=== PATIENT | female | born 1955 | race Caucasian/White ===

== ENCOUNTER 2021-06-10 08:24 | Inpatient (IN) | payer MEDICARE, MEDICAID, SELFPAY ==
[2021-06-10] VITALS (8 sets, daily range): BP systolic 86–144; BP diastolic 33–108; PULSE 63–89; RESP 14–26; TEMP 35.8–36.9; O2SAT 76–99; BMI 27.1; BMI 25.0
--- NOTE | 2021-06-10 08:36 | RAD_ITS ---
INDICATION: hypoxia EXAMINATION/TECHNIQUE: X-RAY - XR Chest 1 View COMPARISON: None. FINDINGS: LINES/DEVICES: None. Low lung volumes accentuate the interstitial markings and mediastinal prominence. Heart size is normal. Left basilar retrocardiac cystic lucency is incompletely characterized. No focal consolidations, effusions, or sizable pneumothorax. Osseous structures are grossly intact. RAD/Chest 1 View (Portable) IMPRESSION: Incompletely characterized left basilar retrocardiac cystic lucency. Findings may relate to a hiatal hernia however further assessment with CT chest is recommended to exclude cystic or cavitary lesion. Electronically Signed: Reinaldo House MD at 10:15 EST Tel , Service support ,
--- NOTE | 2021-06-10 08:37 | EKG12_ITS ---
Test Reason : AMS Blood Pressure : / mmHG Vent. Rate : 079 BPM Atrial Rate : 079 BPM P-R Int : 136 ms QRS Dur : 072 ms QT Int : 376 ms P-R-T Axes : 014 -37 087 degrees QTc Int : 431 ms Normal sinus rhythm with sinus arrhythmia Left axis deviation Nonspecific T wave abnormality Abnormal ECG Confirmed by SHO ARELLANO, DARIEN ([id number]), editor at large LUCIANO GOODMAN ([id number]) on 06/10/2021 11:50:57 AM Referred By: DIOGENES Confirmed By:DARIEN BERKOWITZ MD
[2021-06-10 08:55] LABS: Absolute Lymphocyte Count 1.44 X10^3/uL (0.83-4.51); Absolute Neutrophil Count 4.6 X10^3/uL (2.0-7.7); Basophil# 0.04 X10^3/uL; Basophil% 0.5 % (0-1); Eosinophils% 2.7 % (0-5); Hematocrit 47.3 % (37-47); Hemoglobin 16.2 g/dL (12.0-15.0); Lymphocyte # 1.44 X10^3/ul (0.83-4.51); Lymphocyte % 19.3 % (19-41); Mean Corp Hgb Conc 34.2 g/dL (32-36); Mean Corpuscular Hgb 33.3 pg (27.0-32.0); Mean Corpuscular Volume 97.1 fL (81-99); Mean Platelet Vol. 10.4 fl (6.2-12.0); Monocyte# 1.14 X10^3/uL; Monocyte% 15.3 % (0-10); NRBC Flagged by Analyzer 0 % (0-5); Neutrophil # 4.58 X10^3/uL (2.7-7.7); Neutrophil % 61.5 % (47-70); Platelet Count 160 K/mm3 (150-450); RBC Distribution Width SD 49.2 fl (35.1-43.9); Red Blood Count 4.87 M/mm3 (4.2-5.4); White Blood Count 7.5 K/mm3 (4.4-11.0)
--- NOTE | 2021-06-10 09:00 | EX.ED.DYSGE1 ---
HPI History of Present Illness Chief Complaint: Mental Status Change Informant: patient Narrative Narrative: 65-year-old female from [facility] presents to the emergency room via EMS. Reportedly the patient vomited yesterday. Unfortunately the information EMS got was provided by the roommate. They note that her mentation is different than baseline and her leaning her neck to the left is new. EMS was concerned about a GI bleed as the emesis around her mouth and in her mouth appears black. The patient can tell me that she is experiencing abdominal pain. EMS notes hypotension and hypoxemia. No reported anticoagulants prescribed. PFSH PFS Medical History Anemia Generalized anxiety disorder GERD (gastroesophageal reflux disease) Intellectual disability TIERRA (obstructive sleep apnea) Allergy/AdvReac Type Severity Reaction Status Date / Time cephalexin Allergy PT UNABLE Verified 06/10/21 09:18 TO RESPOND-NEEDS F/U codeine Allergy PT UNABLE Verified 06/10/21 09:18 TO RESPOND-NEEDS F/U Social History (Updated 06/10/21 @ 09:[address] David Hui DO) Smoking Status: Never smoker alcohol intake: never ROS ROS ED Constitutional Constitutional ED: Denies chills or weight loss Eyes Eyes: Denies change in vision or diplopia ENT ENT ED: Denies ear pain, rhinorrhea or sore throat Cardiovascular Cardiovascular: Denies chest pain, orthopnea, palpitations or racing heartbeat Respiratory/Chest Respiratory/Chest: Denies cough, dyspnea or orthopnea Gastrointestinal Gastrointestinal: Reports abdominal pain, nausea and vomiting; Denies diarrhea Genitourinary Genitourinary ED: Denies dysuria, hematuria or urinary frequency Musculoskeletal Musculoskeletal: Reports neck pain; Denies arthralgias or myalgias Integumentary Denies abscess or rash Neurologic Neurologic: Denies headache(s) or weakness Psychiatric Psychiatric: Denies anxiety, depression, suicidal ideation or suicidal thoughts Endocrine Endocrinology: Denies polydipsia, polyphagia or polyuria Allergic/Immunologic Allergic/Immunologic ED: Denies mouth swelling, tongue swelling or urticaria EXAM Physical Exam Const Vital Signs: 06/10/21 08:25 06/10/21 08:40 06/10/21 13:11 Temperature 96.8 F L 96.5 F L Temperature Source Temporal Temporal Pulse Rate 80 86 76 Respiratory Rate 22 H 14 24 H Blood Pressure 94/51 L 86/56 L 109/33 L Blood Pressure Mean 65 66 58 Pulse Ox 91 93 99 Oxygen Delivery Method Nasal Cannula Room Air Room Air Oxygen Flow Rate (L/min) 2 Positive well nourished and well developed General Appearance ED: well developed HEENT Reports normocephalic, head/scalp atraumatic and moist mucous membranes HEENT Narrative: There is black appearing emesis on the patient's teeth and lips Eyes PERRL and EOMs intact bilaterally Neck no JVD Neck Narrative: Patient holds her head side bent left rotated right and complains of pain with movement she reports tenderness to palpation in the musculature Resp normal respiratory effort and clear to auscultation bilaterally Cardio regular rate, regular rhythm and no murmurs GI Auscultation: normoactive bowel sounds Palpation: soft and tender Narrative: Patient is incontinent of stool which is black appearing Back/Spine no CVA tenderness and normal ROM Extremity General Extremety ED: Yes edema General Extremity: edema Neuro CN's II-XII intact bilaterally Sensorium / Orientation: alert Motor Exam: strength 5/5 throughout Psych Mood & Affect: Negative for tearful Skin no rashes or lesions noted and no wounds MDM MDM MDM Narrative Medical decision making narrative: Arriving in the emergency department the patient was found to be hypotensive hypoxic with altered mental status. It would appear that the patient has vomited yesterday and unknown when she had diarrhea. Patient is a extremely difficult IV start and blood draw. Eventually I performed a femoral stick was able to get basic labs. My interpretation of the chest x-ray is no acute process. White count 7.5. Lactic acid is normal. She has evidence of UTI on cath specimen. This will be sent for culture and the patient received Cipro. Blood cultures were also obtained. CT abdomen pelvis did not demonstrate anything acute. CT of the brain showed nothing acute. After receiving a liter of IV fluids her blood pressure has been elevated and stable. She has been receiving supplemental oxygenation. Lab Data Attestation: I reviewed the patient's lab results. Labs: Laboratory Results - last 24 hr 06/10/21 06/10/21 06/10/21 08:45 08:45 08:45 WBC 7.5 RBC 4.87 Hgb 16.2 H Hct 47.3 H MCV 97.1 MCH 33.3 H MCHC 34.2 RDW Std Deviation 49.2 H RDW Coeff of Robin 14.0 Plt Count 160 MPV 10.4 Immature Gran % (Auto) 0.700 Neut % (Auto) 61.5 Lymph % (Auto) 19.3 Hart % (Auto) 15.3 H Eos % (Auto) 2.7 Baso % (Auto) 0.5 Absolute Neuts (auto) 4.6 Absolute Lymphs (auto) 1.44 Nucleated RBC % 0 PT Cancelled INR Cancelled APTT Cancelled Sodium Cancelled Potassium Cancelled Chloride Cancelled Carbon Dioxide Cancelled Anion Gap Cancelled BUN Cancelled Creatinine Cancelled Estim Creat Clear Calc Cancelled Est GFR (MDRD) Af Amer Cancelled Est GFR (MDRD) Non-Af Cancelled BUN/Creatinine Ratio Cancelled Glucose Cancelled Lactic Acid Calcium Cancelled Total Bilirubin Cancelled Direct Bilirubin Cancelled AST Cancelled ALT Cancelled Alkaline Phosphatase Cancelled Troponin I High Sens Cancelled Total Protein Cancelled Albumin Cancelled Globulin Cancelled Lipase Cancelled Urine Color Urine Clarity Urine pH Ur Specific [place] Urine Protein Urine Glucose (UA) Urine Ketones Urine Occult Blood Urine Nitrite Urine Bilirubin Urine Urobilinogen Ur Leukocyte Esterase Urine RBC Urine WBC Ur Squamous Epith Cells Urine Bacteria Urine Mucus Valproic Acid Blood Type Antibody Screen 06/10/21 06/10/21 06/10/21 08:45 08:45 08:45 WBC RBC Hgb Hct MCV MCH MCHC RDW Std Deviation RDW Coeff of Robin Plt Count MPV Immature Gran % (Auto) Neut % (Auto) Lymph % (Auto) Hart % (Auto) Eos % (Auto) Baso % (Auto) Absolute Neuts (auto) Absolute Lymphs (auto) Nucleated RBC % PT INR APTT Sodium Potassium Chloride Carbon Dioxide Anion Gap BUN Creatinine Estim Creat Clear Calc Est GFR (MDRD) Af Amer Est GFR (MDRD) Non-Af BUN/Creatinine Ratio Glucose Lactic Acid Cancelled Calcium Total Bilirubin Direct Bilirubin AST ALT Alkaline Phosphatase Troponin I High Sens Total Protein Albumin Globulin Lipase Urine Color Urine Clarity Urine pH Ur Specific [place] Urine Protein Urine Glucose (UA) Urine Ketones Urine Occult Blood Urine Nitrite Urine Bilirubin Urine Urobilinogen Ur Leukocyte Esterase Urine RBC Urine WBC Ur Squamous Epith Cells Urine Bacteria Urine Mucus Valproic Acid Cancelled Blood Type Cancelled Antibody Screen Cancelled 06/10/21 06/10/21 06/10/21 10:30 11:15 11:35 WBC RBC Hgb Hct MCV MCH MCHC RDW Std Deviation RDW Coeff of Robin Plt Count MPV Immature Gran % (Auto) Neut % (Auto) Lymph % (Auto) Hart % (Auto) Eos % (Auto) Baso % (Auto) Absolute Neuts (auto) Absolute Lymphs (auto) Nucleated RBC % PT 14.3 INR 1.2 APTT 28.6 Sodium Cancelled Potassium Cancelled Chloride Cancelled Carbon Dioxide Cancelled Anion Gap Cancelled BUN Cancelled Creatinine Cancelled Estim Creat Clear Calc Cancelled Est GFR (MDRD) Af Amer Cancelled Est GFR (MDRD) Non-Af Cancelled BUN/Creatinine Ratio Cancelled Glucose Cancelled Lactic Acid Calcium Cancelled Total Bilirubin Cancelled Direct Bilirubin Cancelled AST Cancelled ALT Cancelled Alkaline Phosphatase Cancelled Troponin I High Sens Cancelled Total Protein Cancelled Albumin Cancelled Globulin Cancelled Lipase Cancelled Urine Color Yellow Urine Clarity Sl. Cloudy Urine pH 6.0 Ur Specific [place] 1.015 Urine Protein 30 H Urine Glucose (UA) Normal Urine Ketones 15 H Urine Occult Blood 50 H Urine Nitrite Negative Urine Bilirubin Negative Urine Urobilinogen 1 H Ur Leukocyte Esterase 500 H Urine RBC 0-5 SEEN Urine WBC 25-50 SEEN Ur Squamous Epith Cells 0-5 SEEN Urine Bacteria 1+ Urine Mucus 0 SEEN Valproic Acid Blood Type Antibody Screen 06/10/21 06/10/21 11:35 11:35 WBC RBC Hgb Hct MCV MCH MCHC RDW Std Deviation RDW Coeff of Robin Plt Count MPV Immature Gran % (Auto) Neut % (Auto) Lymph % (Auto) Hart % (Auto) Eos % (Auto) Baso % (Auto) Absolute Neuts (auto) Absolute Lymphs (auto) Nucleated RBC % PT INR APTT Sodium 136 Potassium 3.7 Chloride 99 Carbon Dioxide 30.0 Anion Gap 7 BUN 20 H Creatinine 1.42 H Estim Creat Clear Calc 35.07 Est GFR (MDRD) Af Amer 48 L Est GFR (MDRD) Non-Af 39 L BUN/Creatinine Ratio 14.1 Glucose 96 Lactic Acid 1.5 Calcium 8.5 Total Bilirubin 0.40 Direct Bilirubin 0.20 AST 15 ALT 9 L Alkaline Phosphatase 76 Troponin I High Sens 45 Total Protein 6.9 Albumin 2.2 L Globulin 4.7 H Lipase 387 Urine Color Urine Clarity Urine pH Ur Specific [place] Urine Protein Urine Glucose (UA) Urine Ketones Urine Occult Blood Urine Nitrite Urine Bilirubin Urine Urobilinogen Ur Leukocyte Esterase Urine RBC Urine WBC Ur Squamous Epith Cells Urine Bacteria Urine Mucus Valproic Acid Blood Type Antibody Screen Radiography Diagnostic Testing: Clinical Impression(s) from Imaging Studies Chest X-Ray 06/10/21 08:36 IMPRESSION: Incompletely characterized left basilar retrocardiac cystic lucency. Findings may relate to a hiatal hernia however further assessment with CT chest is recommended to exclude cystic or cavitary lesion. Electronically Signed: Reinaldo House MD at 10:15 EST Tel , Service support , Abdomen/Pelvis CT 06/10/21 12:34 IMPRESSION: Large hiatal hernia with left basilar atelectasis. Individualized dose optimization techniques were used for this CT. at 1331 Reported and signed by: Raghu Noel MD Electronically Signed: Raghu Noel MD at 13:30 EST Tel , Service support , Brain CT 06/10/21 12:42 IMPRESSION: 1. No acute intracranial abnormality. 2. Minimal underlying senescent change with small vessel ischemia. Individualized dose optimization techniques were used for this CT. at 1323 Reported and signed by: Raghu Noel MD Electronically Signed: Raghu Noel MD at 13:22 EST Tel , Service support , EKG Initial EKG: Attestation: I personally reviewed and interpreted this EKG as follows: Comments: Normal sinus rhythm with a ventricular rate of 79 bpm Discharge Plan Dx/Rx/DC Orders Clinical Impression: Vomiting and diarrhea, Acute cystitis, Acute hypoxemic respiratory failure, Acute hypotension, Acute torticollis Disposition Disposition: Acute Care Hospital [facility]
[2021-06-10 10:37] LABS: Mucous, Urine 0 SEEN /hpf (<or=2+)
[2021-06-10 10:39] LABS: Color, Urine Yellow (Yellow); Glucose, Dipstick Normal (Normal); Ketone-Dipstick 15 mg/dl (Negative); Leukocyte Esterase-Dipstick 500 /ul (Negative); Nitrite-Dipstick Negative (Negative); Occult Blood-Urine 50 /ul (Negative); Protein-Dipstick 30 mg/dl (Negative); Specific Gravity, Urine 1.015 (1.002-1.030); Urine Bilirubin Dipstick Negative (Negative); Urine Clarity Sl. Cloudy (Clear); Urine Urobilinogen 1 mg/dl (Normal)
[2021-06-10 10:49] LABS: Bacteria 1+ /hpf (None Seen); Red Blood Cells-Urine 0-5 SEEN /hpf (0-5); Squamous Epithelial Cells - UA 0-5 SEEN /hpf (5-10); White Blood Cells 25-50 SEEN /hpf (0-5)
[2021-06-10 11:59] LABS: International Normalized Ratio 1.2; Prothrombin Time (Protime)PT. 14.3 SECONDS (11.7-14.9)
[2021-06-10 12:00] LABS: Partial Thromboplast Time 28.6 Seconds (24.1-36.2)
[2021-06-10 12:12] LABS: Lactic Acid 1.5 mmol/L (0.4-1.9)
[2021-06-10 12:22] LABS: AST(SGOT) 15 U/L (15-37); Alanine Aminotransfer ALT/SGPT 9 U/L (13-56); Albumin, Serum 2.2 g/dL (3.2-5.0); Alkaline Phosphatase 76 U/L (45-117); Anion Gap 7 (5-15); BUN 20 mg/dL (7-18); BUN/Creat Ratio 14.1 RATIO (10-20); Calcium,Total 8.5 mg/dL (8.5-10.1); Chloride 99 mmol/L (98-107); Creatinine, Serum 1.42 mg/dL (0.55-1.02); EST Glomerular Filtration Rate 39 mL/min (>60); Est Glom Filt Rate - Afr Amer 48 mL/min (>60); Estimated Creatinine Clearance 35.07 ml/min; Globulin 4.7 g/dL (2.2-4.2); Glucose 96 mg/dL (74-106); Lipase 387 U/L (73-393); Potassium 3.7 mmol/L (3.5-5.1); Protein, Total 6.9 g/dL (6.4-8.2); Sodium Level 136 mmol/L (136-145); Troponin-I HS 45 pg/mL (3.0-54.0)
--- NOTE | 2021-06-10 12:34 | CT_ITS ---
EXAM: CT ABDOMEN AND PELVIS WITH INTRAVENOUS CONTRAST : 1955 CLINICAL INDICATION: abdominal pain and vomiting TECHNIQUE: Helically acquired images were obtained of the abdomen and pelvis with intravenous contrast. This CT exam was performed using one or more of the following dose reduction techniques: automated exposure control, adjustment of the mA and/or kV according to patient size, and/or use of iterative reconstruction technique. This report was created using [employer] report generation technology. CONTRAST: IV 100mL [id number] COMPARISON: None. FINDINGS: LOWER THORAX: There is atelectasis in the lung bases. There is a moderate to large hiatal hernia present. No cardiomegaly. No significant pericardial effusion. ABDOMEN: LIVER: Unremarkable. Homogeneous. No focal mass. GALLBLADDER AND BILE DUCTS: Unremarkable. No calcified gallstones. No gallbladder distention or wall edema. No intra- or extrahepatic biliary ductal dilation. PANCREAS: Unremarkable. No focal cystic or solid mass. SPLEEN: Unremarkable. Normal size without focal cystic or solid mass. ADRENALS: Unremarkable. No nodules. KIDNEYS AND URETERS: Unremarkable. Normal renal size and position. No hydronephrosis. STOMACH AND BOWEL: There are diverticula in the descending and sigmoid colon. There is minimal inflammation seen surrounding the distal descending colon which may represent diverticulitis. There is also inflammation involves enhancement of the wall of the mid to distal sigmoid colon which may represent colitis. Depression. Inflammation of the wall of the mid to distal sigmoid colon with surrounding inflammation with no evident mild colitis. There are also diverticula seen in the descending colon with mild inflammation which may represent diverticulitis. There is no abscess or perforation. No stomach or bowel distention. PELVIS: APPENDIX: No evidence of acute appendicitis. BLADDER: There is a Snell catheter in the bladder. REPRODUCTIVE: Unremarkable as visualized. No mass. ABDOMEN and PELVIS: INTRAPERITONEAL SPACE: Unremarkable. No ascites or other fluid collection. No free air. BONES/JOINTS: Unremarkable. No suspicious lytic or blastic abnormality. SOFT TISSUES: Unremarkable. No discrete abdominal or pelvic wall hernia. VASCULATURE: Unremarkable. Abdominal aorta is non-dilated. LYMPH NODES: Unremarkable. No enlarged lymph nodes. OTHER FINDINGS: There is no abscess or perforation. CT/Abdomen/Pelvis W IV Cont ONLY IMPRESSION: Large hiatal hernia with left basilar atelectasis. Individualized dose optimization techniques were used for this CT. at 1331 Reported and signed by: Raghu Noel MD Electronically Signed: Raghu Noel MD at 13:30 EST Tel , Service support ,
--- NOTE | 2021-06-10 12:42 | CT_ITS ---
EXAM: CT HEAD WITHOUT INTRAVENOUS CONTRAST : 1955 CLINICAL INDICATION: altered loc TECHNIQUE: Multiple axial images were obtained of the head without intravenous contrast. This CT exam was performed using one or more of the following dose reduction techniques: automated exposure control, adjustment of the mA and/or kV according to patient size, and/or use of iterative reconstruction technique. This report was created using [facility] report generation technology. COMPARISON: None. FINDINGS: BRAIN AND EXTRA-AXIAL SPACES: There is enlargement of the ventricular system and cortical sulci. There is minimal hypoattenuation in the periventricular white matter. No intra- or extra-axial hemorrhage. No evidence of acute infarct. No intracranial mass or mass effect. There is preservation of the muniz/white matter interface. Posterior fossa structures are unremarkable. Basal cisterns are patent. BONES/JOINTS: Unremarkable. No discrete lytic or blastic abnormalities. SINUSES: Unremarkable as visualized. Clear. MASTOID AIR CELLS: Unremarkable. Clear. ORBITS: Visualized globes, extraocular muscles, optic nerves and retrobulbar fat appear unremarkable. CT/Brain/Head without Contrast IMPRESSION: 1. No acute intracranial abnormality. 2. Minimal underlying senescent change with small vessel ischemia. Individualized dose optimization techniques were used for this CT. at 1323 Reported and signed by: Raghu Noel MD Electronically Signed: Raghu Noel MD at 13:22 EST Tel , Service support ,
--- NOTE | 2021-06-10 14:11 | HP.PCM.HOS_ITS ---
HPI - General HPI Narrative YOLIS DHILLON, is a 65 F who presents from the residential with altered mental status. Unfortunately there is no nursing staff available at the time to provide signout to EMS so the patient's roommate told EMS what had been going on. Apparently the patient had thrown up the night before and had a bowel movement this morning and had not been evaluated by nursing staff at the residential until this morning at which point we'll determine she is to be transferred to the hospital for evaluation. In the ER she is afebrile without a leukocytosis. She does appear to be dehydrated with hemoglobin of 16.2 and her creatinine is elevated at 1.42 however we do not know what her baseline is. UA is consistent with UTI and initially she was little bit hypoxic but which needed 2 L nasal cannula but this has resolved. Given the episode of emesis combined with the transient hypoxia chest x-ray was obtained which initially was unremarkable. [facility] Medical History (Updated 06/10/21 @ 14:[address] Mando Baires MD) Anemia Generalized anxiety disorder GERD (gastroesophageal reflux disease) Intellectual disability TIERRA (obstructive sleep apnea) Allergy/AdvReac Type Severity Reaction Status Date / Time cephalexin Allergy PT UNABLE Verified 06/10/21 09:18 TO RESPOND-NEEDS F/U codeine Allergy PT UNABLE Verified 06/10/21 09:18 TO RESPOND-NEEDS F/U Family History (Updated 06/10/21 @ 14:[address] Mando Baires MD) Other Cancer Heart disease Surgical History (Updated 06/10/21 @ 14:[address] Mando Baires MD) Status post cataract extraction Social History (Updated 06/10/21 @ 09:[address] David Hui, ) Smoking Status: Never smoker alcohol intake: never ROS Constitutional Constitutional: Denies chills, fatigue, fever(s) or malaise Eyes Eyes: Denies blurry vision ENT HEENT: Denies headache(s) or nasal discharge Cardiovascular Cardiovascular: Denies chest pain, dyspnea on exertion or syncope Respiratory/Chest Respiratory/Chest: Denies cough, shortness of breath at rest or shortness of breath with exertion Gastrointestinal Gastrointestinal: Reports nausea and vomiting; Denies constipation or diarrhea Genitourinary Genitourinary: Denies dysuria Neurologic Neurologic: Denies focal weakness, numbness or tremor(s) Psychiatric Psychiatric: Denies anxiety or depression Vital Signs Vital Signs Vital Signs: 06/10/21 08:25 06/10/21 08:40 06/10/21 13:11 Temperature 96.8 F L 96.5 F L Temperature Source Temporal Temporal Pulse Rate 80 86 76 Respiratory Rate 22 H 14 24 H Blood Pressure 94/51 L 86/56 L 109/33 L Blood Pressure Mean 65 66 58 Pulse Ox 91 93 99 Oxygen Delivery Method Nasal Cannula Room Air Room Air Oxygen Flow Rate (L/min) 2 Weight Weight: 163 lb 2.273 oz Body Mass Index (BMI) 27.1 Physical Exam Const alert and no apparent distress General Appearance: cooperative Orientation / Consciousness: oriented to person HEENT normocephalic Mouth: dry mucous membranes Eyes PERRL, EOMs intact bilaterally and conjunctivae normal Neck supple and no JVD Resp normal respiratory effort, no retractions, no use of accessory muscles and clear to auscultation bilaterally Auscultation: Negative for crackles, rales, rhonchi or wheezes Cardio regular rate, regular rhythm, S1 normal heart sound, S2 normal heart sound and no murmurs GI soft to palpation, non-tender and non-distended; Negative for hepatosplenomegaly Extremity no clubbing, cyanosis or edema Skin no rashes or lesions noted Neuro no focal motor deficits and no sensory deficits noted Psych affect normal Appearance: appropriate Results Lab / Micro Data Result Diagrams: 06/10/21 08:45 06/10/21 11:35 Labs: Laboratory Results - last 24 hr 06/10/21 08:45: WBC 7.5, RBC 4.87, Hgb 16.2 H, Hct 47.3 H, MCV 97.1, MCH 33.3 H, MCHC 34.2, RDW Std Deviation 49.2 H, RDW Coeff of Robin 14.0, Plt Count 160, MPV 10.4, Immature Gran % (Auto) 0.700, Neut % (Auto) 61.5, Lymph % (Auto) 19.3, [place] % (Auto) 15.3 H, Eos % (Auto) 2.7, Baso % (Auto) 0.5, Absolute Neuts (auto) 4.6, Absolute Lymphs (auto) 1.44, Nucleated RBC % 0 06/10/21 08:45: PT Cancelled, INR Cancelled, APTT Cancelled 06/10/21 08:45: Sodium Cancelled, Potassium Cancelled, Chloride Cancelled, Carbon Dioxide Cancelled, Anion Gap Cancelled, BUN Cancelled, Creatinine Cancelled, Estim Creat Clear Calc Cancelled, Est GFR (MDRD) Af Amer Cancelled, Est GFR (MDRD) Non-Af Cancelled, BUN/Creatinine Ratio Cancelled, Glucose Cancelled, Calcium Cancelled, Total Bilirubin Cancelled, Direct Bilirubin Cancelled, AST Cancelled, ALT Cancelled, Alkaline Phosphatase Cancelled, Troponin I High Sens Cancelled, Total Protein Cancelled, Albumin Cancelled, Globulin Cancelled, Lipase Cancelled 06/10/21 08:45: Lactic Acid Cancelled 06/10/21 08:45: Valproic Acid Cancelled 06/10/21 08:45: Blood Type Cancelled, Antibody Screen Cancelled 06/10/21 10:30: Urine Color Yellow, Urine Clarity Sl. Cloudy, Urine pH 6.0, Ur Specific [place] 1.015, Urine Protein 30 H, Urine Glucose (UA) Normal, Urine Ketones 15 H, Urine Occult Blood 50 H, Urine Nitrite Negative, Urine Bilirubin Negative, Urine Urobilinogen 1 H, Ur Leukocyte Esterase 500 H, Urine RBC 0-5 SEEN, Urine WBC 25-50 SEEN, Ur Squamous Epith Cells 0-5 SEEN, Urine Bacteria 1+, Urine Mucus 0 SEEN 06/10/21 11:15: Sodium Cancelled, Potassium Cancelled, Chloride Cancelled, Carbon Dioxide Cancelled, Anion Gap Cancelled, BUN Cancelled, Creatinine Cancelled, Estim Creat Clear Calc Cancelled, Est GFR (MDRD) Af Amer Cancelled, Est GFR (MDRD) Non-Af Cancelled, BUN/Creatinine Ratio Cancelled, Glucose Cancelled, Calcium Cancelled, Total Bilirubin Cancelled, Direct Bilirubin Cancelled, AST Cancelled, ALT Cancelled, Alkaline Phosphatase Cancelled, Troponin I High Sens Cancelled, Total Protein Cancelled, Albumin Cancelled, Globulin Cancelled, Lipase Cancelled 06/10/21 11:35: PT 14.3, INR 1.2, APTT 28.6 06/10/21 11:35: Lactic Acid 1.5 06/10/21 11:35: Sodium 136, Potassium 3.7, Chloride 99, Carbon Dioxide 30.0, Anion Gap 7, BUN 20 H, Creatinine 1.42 H, Estim Creat Clear Calc 35.07, Est GFR (MDRD) Af Amer 48 L, Est GFR (MDRD) Non-Af 39 L, BUN/Creatinine Ratio 14.1, Glucose 96, Calcium 8.5, Total Bilirubin 0.40, Direct Bilirubin 0.20, AST 15, ALT 9 L, Alkaline Phosphatase 76, Troponin I High Sens 45, Total Protein 6.9, Albumin 2.2 L, Globulin 4.7 H, Lipase 387 Micro: Microbiology 06/10/21 09:05 Stool Stool Occult Blood (RINA) - Final Radiology Impression Chest X-Ray 06/10/21 08:36 IMPRESSION: Incompletely characterized left basilar retrocardiac cystic lucency. Findings may relate to a hiatal hernia however further assessment with CT chest is recommended to exclude cystic or cavitary lesion. Electronically Signed: Reinaldo House MD at 10:15 EST Tel , Service support , Abdomen/Pelvis CT 06/10/21 12:34 IMPRESSION: Large hiatal hernia with left basilar atelectasis. Individualized dose optimization techniques were used for this CT. at 1331 Reported and signed by: Raghu Noel MD Electronically Signed: Raghu Noel MD at 13:30 EST Tel , Service support , Brain CT 06/10/21 12:42 IMPRESSION: 1. No acute intracranial abnormality. 2. Minimal underlying senescent change with small vessel ischemia. Individualized dose optimization techniques were used for this CT. at 1323 Reported and signed by: Raghu Noel MD Electronically Signed: Raghu Noel MD at 13:22 EST Tel , Service support , Assessment & Plan Assessment/Plan (1) Acute cystitis: (2) Metabolic encephalopathy: PLAN: 1. Metabolic encephalopathy secondary to acute UTI/possible LAYNE ?Nausea and vomiting overnight will start her on some Zofran. There was some co ncern that the emesis looked black according to EMS however occult stool was negative for blood and her hemoglobin is 16 ?Unsure whether or not she has an LAYNE secondary to no previous creatinine in her system therefore will monitor fluids ?Given the acute hypoxia and the episode of emesis along with UTI, will start her on Unasyn. There is listed an allergy to Keflex however is unable to be determined as to what the allergy is therefore we'll continue with Unasyn and monitor her reaction ?Her brother is at baseline and is able to fill in some of the gaps, he states that this is a significant alteration in her general mental status. She only knows where she is, and what is going on. She does have a cognitive disability since and she had been living with her mother until about 2015 ?Her hemoglobin is elevated and with a negative occult stool she may be on iron which is giving the stool a darker appearance. At this time I do not think that she has a GI bleed 2. Unsure as to what other medical history she has as she cannot provide any will await for verification of her home medications DVT: SCDs Charges/Coding Visit Charges Inpatient E&M: 11508 Init Hosp L2
[2021-06-10] MEDS: Ciprofloxacin 400 MG/200 ML BAG 200 MG IV (14:25)
[2021-06-10] MEDS: 0.9% Normal Saline 1,000 ML 1000 ML IV (14:26)
[2021-06-10] MEDS: 0.9% Normal Saline 1,000 ML 100 ML IV (18:26)
--- NOTE | 2021-06-10 19:10 | CM.ED ---
MIS Note Referral Source: MD Referral Reason: SNF Concerns MIS was updated about concerns regarding patient's care by MD Baires. SW was advised that patient presented to ED with UTI and AMS. Patient had soiled and thrown up over herself. Report was that there were no nurses anywhere however, the EMS report said that the U/A was greeted by RN. Roommate provided report on patient and her symptoms to EMS. SW made report to [facility] on line complaint form regarding patient's care at her SNF. MIS was unable to contact [facility] due to the lateness of the hour and no staff for the [facility] were available. MIS provided updated to [facility] MIS. Yennifer STEINER
[2021-06-10] MEDS: Acetaminophen 325 MG Tablet 650 MG PO (21:14)
[2021-06-10] MEDS: Ondansetron 4 MG/2 ML Vial IV (21:39)
[2021-06-10] MEDS: 0.9% Saline Lock 10 ML Syringe IV (21:40)
[2021-06-10] MEDS: Nystatin Powder 15gm Bottle 1 APPLIC TOPICAL (22:18)
[2021-06-10] MEDS: Menthol/Lanolin/Calamine/Znox 113 GM Tube 1 APPLIC TOPICAL (22:19)
[2021-06-11] VITALS (7 sets, daily range): BP systolic 111–116; BP diastolic 58–67; PULSE 67–70; RESP 16–18; TEMP 36.7–37.3; O2SAT 91–100
[2021-06-11] MEDS: Menthol/Lanolin/Calamine/Znox 113 GM Tube 1 APPLIC TOPICAL ×3 (05:03→20:20)
[2021-06-11] MEDS: Nystatin Powder 15gm Bottle 1 APPLIC TOPICAL ×3 (05:04→20:20)
[2021-06-11] MEDS: 0.9% Normal Saline 1,000 ML 100 ML IV ×2 (05:10→14:21)
[2021-06-11 11:04] LABS: Valproic Acid (Depakene) Level 41 ug/mL (50-100)
[2021-06-11 11:07] LABS: Anion Gap 8 (5-15); BUN 21 mg/dL (7-18); BUN/Creat Ratio 17.6 RATIO (10-20); Calcium,Total 7.6 mg/dL (8.5-10.1); Chloride 107 mmol/L (98-107); Creatinine, Serum 1.19 mg/dL (0.55-1.02); EST Glomerular Filtration Rate 48 mL/min (>60); Est Glom Filt Rate - Afr Amer 58 mL/min (>60); Estimated Creatinine Clearance 41.85 ml/min; Glucose 124 mg/dL (74-106); Potassium 4.1 mmol/L (3.5-5.1); Sodium Level 139 mmol/L (136-145)
--- NOTE | 2021-06-11 11:20 | PCM.PN.HOSP ---
Subjective Subjective Doing well, feels little bit better she is intermittently requiring oxygen and then coming down to room air Objective Data Objective Data Vital Signs: Vital Signs Temp Pulse Resp BP Pulse Ox 98.4 F 70 18 115/64 100 06/11/21 09:14 06/11/21 09:04 06/11/21 09:04 06/11/21 05:13 06/11/21 09:04 Oxygen Flow Rate (L/min) 2 Oxygen Delivery Method Nasal Cannula Weight: 150 lb 7 oz Body Mass Index (BMI) 25.0 Intake & Output: Intake and Output for Last 24 Hours 06/10/21 06/11/21 06/12/21 03:59 03:59 03:59 Intake Total 1825.33 / 1825.33 1198.67 / 1198.67 Output Total 300 / 300 150 / 150 Balance 1525.33 / 1525.33 1048.67 / 1048.67 Lab / Micro Data Result Diagrams: 06/10/21 08:45 06/11/21 09:26 Labs: Laboratory Results - last 24 hr 06/10/21 11:15: Sodium Cancelled, Potassium Cancelled, Chloride Cancelled, Carbon Dioxide Cancelled, Anion Gap Cancelled, BUN Cancelled, Creatinine Cancelled, Estim Creat Clear Calc Cancelled, Est GFR (MDRD) Af Amer Cancelled, Est GFR (MDRD) Non-Af Cancelled, BUN/Creatinine Ratio Cancelled, Glucose Cancelled, Calcium Cancelled, Total Bilirubin Cancelled, Direct Bilirubin Cancelled, AST Cancelled, ALT Cancelled, Alkaline Phosphatase Cancelled, Troponin I High Sens Cancelled, Total Protein Cancelled, Albumin Cancelled, Globulin Cancelled, Lipase Cancelled 06/10/21 11:35: PT 14.3, INR 1.2, APTT 28.6 06/10/21 11:35: Lactic Acid 1.5 06/10/21 11:35: Sodium 136, Potassium 3.7, Chloride 99, Carbon Dioxide 30.0, Anion Gap 7, BUN 20 H, Creatinine 1.42 H, Estim Creat Clear Calc 35.07, Est GFR (MDRD) Af Amer 48 L, Est GFR (MDRD) Non-Af 39 L, BUN/Creatinine Ratio 14.1, Glucose 96, Calcium 8.5, Total Bilirubin 0.40, Direct Bilirubin 0.20, AST 15, ALT 9 L, Alkaline Phosphatase 76, Troponin I High Sens 45, Total Protein 6.9, Albumin 2.2 L, Globulin 4.7 H, Lipase 387 06/11/21 09:26: WBC Cancelled, Corrected WBC Cancelled, RBC Cancelled, Hgb Cancelled, Hct Cancelled, MCV Cancelled, MCH Cancelled, MCHC Cancelled, RDW Std Deviation Cancelled, RDW Coeff of Robin Cancelled, Plt Count Cancelled, MPV Cancelled, Immature Gran % (Auto) Cancelled, Neut % (Auto) Cancelled, Lymph % (Auto) Cancelled, [place] % (Auto) Cancelled, Eos % (Auto) Cancelled, Baso % (Auto) Cancelled, Absolute Neuts (auto) Cancelled, Absolute Lymphs (auto) Cancelled, Total Counted Cancelled, Neutrophils % (Manual) Cancelled, Band Neutrophils % Cancelled, Lymphocytes % (Manual) Cancelled, Monocytes % (Manual) Cancelled, Eosinophils % (Manual) Cancelled, Basophils % (Manual) Cancelled, Metamyelocytes % Cancelled, Myelocytes % Cancelled, Promyelocytes % Cancelled, Blast Cells % Cancelled, Plasma Cell % (Manual) Cancelled, Other Cells % Cancelled, Nucleated RBC % Cancelled, Nucleated RBCs/100 WBC Cancelled, Differential Comment Cancelled, Diff Path Review Cancelled, Hypersegmented Neuts Cancelled, Atypical Lymphocytes Cancelled, Reactive Lymphocytes Cancelled, Smudge Cells Cancelled, Toxic Granulation Cancelled, Toxic Vacuolation Cancelled, Dohle Bodies Cancelled, Chelsi Rods Cancelled, Platelet Estimate Cancelled, Plt Morphology Comment Cancelled, RBC Morphology Cancelled, Polychromasia Cancelled, Hypochromasia Cancelled, Poikilocytosis Cancelled, Basophilic Stippling Cancelled, Anisocytosis Cancelled, Microcytosis Cancelled, Macrocytosis Cancelled, Spherocytes Cancelled, Sickle Cells Cancelled, Target Cells Cancelled, Tear Drop Cells Cancelled, Ovalocytes Cancelled, Stomatocytes Cancelled, [place] Bodies Cancelled, [place] Cells Cancelled, Bite Cells Cancelled, Crenated Cell Cancelled, Acanthocytes (Spur) Cancelled, Rouleaux Cancelled, Schistocytes Cancelled 06/11/21 09:26: Sodium 139, Potassium 4.1, Chloride 107, Carbon Dioxide 24.0, Anion Gap 8, BUN 21 H, Creatinine 1.19 H, Estim Creat Clear Calc 41.85, Est GFR (MDRD) Af Amer 58 L, Est GFR (MDRD) Non-Af 48 L, BUN/Creatinine Ratio 17.6, Glucose 124 H, Calcium 7.6 L 06/11/21 09:26: Valproic Acid 41 L Micro: Microbiology 06/10/21 14:39 Urine, Clean Catch Urine Culture - Preliminary Culture exhibits no growth. 06/10/21 11:20 Blood Culture (Wb) - Femoral Artery Bacteria Detection (PCR) - Final Enterococcus faecalis 06/10/21 11:20 Blood Culture (Wb) - Femoral Artery Blood Culture - Preliminary 06/10/21 09:05 Stool Stool Occult Blood (RINA) - Final Radiography Diagnostic Testing: Radiology Impression Abdomen/Pelvis CT 06/10/21 12:34 IMPRESSION: Large hiatal hernia with left basilar atelectasis. Individualized dose optimization techniques were used for this CT. at 1331 Reported and signed by: Raghu Noel MD Electronically Signed: Raghu Noel MD at 13:30 EST Tel , Service support , Brain CT 06/10/21 12:42 IMPRESSION: 1. No acute intracranial abnormality. 2. Minimal underlying senescent change with small vessel ischemia. Individualized dose optimization techniques were used for this CT. at 1323 Reported and signed by: Raghu Noel MD Electronically Signed: Raghu Noel MD at 13:22 EST Tel , Service support , Physical Exam Const alert and no apparent distress General Appearance: cooperative Orientation / Consciousness: oriented to person and oriented to place HEENT normocephalic and moist oral mucous membranes Eyes PERRL, EOMs intact bilaterally and conjunctivae normal Neck supple and no JVD Resp normal respiratory effort, no retractions and no use of accessory muscles Auscultation: diminished lung sounds; Negative for crackles, rales, rhonchi or wheezes Cardio regular rate, regular rhythm, S1 normal heart sound, S2 normal heart sound and no murmurs GI soft to palpation, non-tender and non-distended; Negative for hepatosplenomegaly Extremity no clubbing, cyanosis or edema Skin no rashes or lesions noted Neuro no focal motor deficits and no sensory deficits noted Psych affect normal Appearance: appropriate Assessment & Plan Assessment/Plan (1) Acute cystitis: (2) Metabolic encephalopathy: PLAN: 1. Metabolic encephalopathy secondary to acute UTI versus aspiration/possible LAYNE ?Nausea and vomiting overnight will start her on some Zofran. There was some concern that the emesis looked black according to EMS however occult stool was negative for blood and her hemoglobin is 16 admission, repeat pending ?Unsure whether or not she has an LAYNE secondary to no previous creatinine in her system therefore will monitor and continue with fluids ?Given the acute hypoxia and the episode of emesis along with UTI, will start her on Unasyn. There is listed an allergy to Keflex however is unable to be determined as to what the allergy is therefore we'll continue with Unasyn and monitor her reaction ?Her brother is at baseline and is able to fill in some of the gaps, he states that this is a significant alteration in her general mental status. She only knows where she is, and what is going on. She does have a cognitive disability since and she had been living with her mother until about 2016 ?Her hemoglobin is elevated and with a negative occult stool she may be on iron which is giving the stool a darker appearance. At this time I do not think that she has a GI bleed ?She does have a blood culture with gram-positive cocci however is only in 1 out of 4 tubes therefore potentially could be a contaminant will await for speciation 2. HTN/HLD ?Blood pressures are stable ?Continue with her home blood pressure medication ?Continue with pravastatin 3. Movement disorder/anxiety/depression ?Stable ?She is on Depakote which we will continue, her level was low ?Continue with Effexor and Lexapro 4. Iron deficiency anemia ?Hemoglobin is 16, repeat is pending for today ?Continue with iron replacement DVT: SCDs Charges/Coding Visit Charges Inpatient E&M: 01651 Subs Hosp L2
[2021-06-11 11:53] LABS: Absolute Lymphocyte Count 0.65 X10^3/uL (0.83-4.51); Absolute Neutrophil Count 7.9 X10^3/uL (2.0-7.7); Basophil# 0.05 X10^3/uL; Basophil% 0.5 % (0-1); Eosinophil# 0.02 X10^3/uL; Eosinophils% 0.2 % (0-5); Hematocrit 41.2 % (37-47); Hemoglobin 13.7 g/dL (12.0-15.0); Lymphocyte # 0.65 X10^3/ul (0.83-4.51); Lymphocyte % 6.5 % (19-41); Mean Corp Hgb Conc 33.3 g/dL (32-36); Mean Corpuscular Volume 99.3 fL (81-99); Mean Platelet Vol. 10.2 fl (6.2-12.0); Monocyte# 1.33 X10^3/uL; Monocyte% 13.3 % (0-10); NRBC Flagged by Analyzer 0 % (0-5); Neutrophil % 78.8 % (47-70); POSITIVE MORPHOLOGY YES; Platelet Count 133 K/mm3 (150-450); RBC Distribution Width CV 14.5 % (11.6-14.6); RBC Distribution Width SD 52.9 fl (35.1-43.9); Red Blood Count 4.15 M/mm3 (4.2-5.4)
[2021-06-11 11:54] LABS: Differential Indicated SCAN CRITERIA MET
[2021-06-11] MEDS: 0.9% Saline Lock 10 ML Syringe IV ×2 (14:19→20:09)
[2021-06-11] MEDS: Venlafaxine XR 75 MG Capsule PO (20:09)
[2021-06-11] MEDS: Pravastatin 40 MG Tablet PO (20:09)
[2021-06-11] MEDS: Divalproex Sodium 250 MG Tablet PO (20:11)
[2021-06-12] MEDS: 0.9% Normal Saline 1,000 ML 100 ML IV ×3 (03:00→23:26)
[2021-06-12 03:38] VITALS: BP 123/62; PULSE 67; RESP 16; TEMP 37; O2SAT 95
[2021-06-12] MEDS: Nystatin Powder 15gm Bottle 1 APPLIC TOPICAL ×3 (04:03→23:18)
[2021-06-12] MEDS: Menthol/Lanolin/Calamine/Znox 113 GM Tube 1 APPLIC TOPICAL ×3 (04:04→23:19)
[2021-06-12 06:31] LABS: Basophil# 0.03 X10^3/uL; Hematocrit 33.1 % (37-47); Mean Corp Hgb Conc 33.2 g/dL (32-36); Mean Corpuscular Hgb 33.3 pg (27.0-32.0); Mean Corpuscular Volume 100.3 fL (81-99); Mean Platelet Vol. 10.5 fl (6.2-12.0); NRBC Flagged by Analyzer 0 % (0-5); POSITIVE DIFFERENTIAL YES; POSITIVE MORPHOLOGY YES; Platelet Count 102 K/mm3 (150-450); RBC Distribution Width CV 14.8 % (11.6-14.6); RBC Distribution Width SD 55.3 fl (35.1-43.9); White Blood Count 6.4 K/mm3 (4.4-11.0)
[2021-06-12 06:32] LABS: Differential Indicated SCAN CRITERIA MET
[2021-06-12 07:04] LABS: Anion Gap 6 (5-15); BUN 24 mg/dL (7-18); BUN/Creat Ratio 18.9 RATIO (10-20); Calcium,Total 7.5 mg/dL (8.5-10.1); Chloride 111 mmol/L (98-107); Creatinine, Serum 1.27 mg/dL (0.55-1.02); EST Glomerular Filtration Rate 45 mL/min (>60); Est Glom Filt Rate - Afr Amer 54 mL/min (>60); Estimated Creatinine Clearance 39.21 ml/min; Glucose 117 mg/dL (74-106); Potassium 3.6 mmol/L (3.5-5.1); Scan Smear per Review Criteria MANUAL DIFF; Sodium Level 143 mmol/L (136-145)
[2021-06-12 07:11] LABS: Eosinophil 1 % (0-5); Lymphocyte 7 % (19-41); Metamyelocyte 12 % (0-1); Monocyte 7 % (0-10); Neutrophil-Band 23 % (0-5); Neutrophil-Segmented 50 % (47-70); Total Cells Counted 100 (MANUAL DIFF)
[2021-06-12 07:13] LABS: Absolute Neutrophil Count 5.4 X10^3/uL (2.0-7.7); Neutrophil # 5.41 X10^3/uL (2.7-7.7)
[2021-06-12 07:14] LABS: Absolute Lymphocyte Count 0.45 X10^3/uL (0.83-4.51); Lymphocyte # 0.45 X10^3/ul (0.83-4.51)
[2021-06-12 07:15] LABS: Platelet Estimate SLT DEC (ADEQ); Red Cell Morphology NORM C+C NORMAL (NORM C&C)
[2021-06-12 11:00] VITALS: RESP 18
[2021-06-12 11:03] VITALS: BP 118/57; PULSE 58; RESP 18; TEMP 36.5; O2SAT 98
[2021-06-12] MEDS: Divalproex Sodium 250 MG Tablet PO ×2 (11:08→23:21)
[2021-06-12] MEDS: traMADol 50 MG Tablet PO (11:08)
[2021-06-12] MEDS: Ferrous Sulfate 325 MG Tablet PO (11:08)
[2021-06-12] MEDS: amLODIPine 5 MG Tablet PO (11:08)
[2021-06-12] MEDS: Escitalopram Oxalate 20 MG Tablet PO (11:08)
--- NOTE | 2021-06-12 14:24 | PN.HOSP_ITS ---
Subjective Subjective Doing well, no issues overnight. Continue with Unasyn for the possible aspiration, her urine culture was no growth Objective Data Objective Data Vital Signs: Vital Signs Temp Pulse Resp BP Pulse Ox 97.7 F L 58 L 18 118/57 L 98 06/12/21 11:03 06/12/21 11:03 06/12/21 11:03 06/12/21 11:03 06/12/21 11:03 Oxygen Flow Rate (L/min) 2 Oxygen Delivery Method Nasal Cannula Weight: 150 lb 7 oz Body Mass Index (BMI) 25.0 Intake & Output: Intake and Output for Last 24 Hours 06/11/21 06/12/21 06/13/21 03:59 03:59 03:59 Intake Total 1825.33 / 1825.33 3282.67 / 3282.67 112 / 112 Output Total 300 / 300 600 / 600 130 / 130 Balance 1525.33 / 1525.33 2682.67 / 2682.67 -18 / -18 Lab / Micro Data Result Diagrams: 06/12/21 06:05 06/12/21 06:05 Labs: Laboratory Results - last 24 hr 06/12/21 06:05: WBC 6.4, RBC 3.30 L, Hgb 11.0 L, Hct 33.1 L, MCV 100.3 H, MCH 33.3 H, MCHC 33.2, RDW Std Deviation 55.3 H, RDW Coeff of Robin 14.8 H, Plt Count 102 L, MPV 10.5, Immature Gran % (Auto) PRODUCTION TEAM ADVISOR, Neut % (Auto) PRODUCTION TEAM ADVISOR, Lymph % (Auto) PRODUCTION TEAM ADVISOR, [place] % (Auto) PRODUCTION TEAM ADVISOR, Eos % (Auto) PRODUCTION TEAM ADVISOR, Baso % (Auto) PRODUCTION TEAM ADVISOR, Absolute Neuts (auto) 5.4, Absolute Lymphs (auto) 0.45 L, Total Counted 100, Neutrophils % (Manual) 50, Band Neutrophils % 23 H, Lymphocytes % (Manual) 7 L, Monocytes % (Manual) 7, E osinophils % (Manual) 1, Metamyelocytes % 12 H, Nucleated RBC % 0, Diff Path Review November, Platelet Estimate SLT DEC, RBC Morphology NORM C+C 06/12/21 06:05: Sodium 143, Potassium 3.6, Chloride 111 H, Carbon Dioxide 26.0, Anion Gap 6, BUN 24 H, Creatinine 1.27 H, Estim Creat Clear Calc 39.21, Est GFR (MDRD) Af Amer 54 L, Est GFR (MDRD) Non-Af 45 L, BUN/Creatinine Ratio 18.9, Glucose 117 H, Calcium 7.5 L Micro: Microbiology 06/10/21 14:39 Urine, Clean Catch Urine Culture - Preliminary Culture exhibits no growth. 06/10/21 11:20 Blood Culture (Wb) - Femoral Artery Bacteria Detection (PCR) - Final Enterococcus faecalis 06/10/21 11:20 Blood Culture (Wb) - Femoral Artery Blood Culture - Preliminary Gram Positive Cocci 06/10/21 09:05 Stool Stool Occult Blood (RINA) - Final Physical Exam Const alert and no apparent distress General Appearance: cooperative Orientation / Consciousness: oriented to person and oriented to place HEENT normocephalic and moist oral mucous membranes Eyes PERRL, EOMs intact bilaterally and conjunctivae normal Neck supple and no JVD Resp normal respiratory effort, no retractions and no use of accessory muscles Auscultation: diminished lung sounds; Negative for crackles, rales, rhonchi or wheezes Cardio regular rate, regular rhythm, S1 normal heart sound, S2 normal heart sound and no murmurs GI soft to palpation, non-tender and non-distended; Negative for hepatosplenomegaly Extremity no clubbing, cyanosis or edema Skin no rashes or lesions noted Neuro no focal motor deficits and no sensory deficits noted Psych affect normal Appearance: appropriate Assessment & Plan Assessment/Plan (1) Acute cystitis: (2) Metabolic encephalopathy: PLAN: 1. Metabolic encephalopathy secondary to aspiration/possible LAYNE/Enterococcus in 1 blood culture while ?Nausea and vomiting overnight prior to admission, start her on some Zofran. There was some concern that the emesis looked black according to EMS however occult stool was negative for blood and her hemoglobin is 16 admission ?Unsure whether or not she has an LAYNE secondary to no previous creatinine in her system therefore will monitor and continue with fluids ?Given the acute hypoxia and the episode of emesis, will start her on Unasyn. There is listed an allergy to Keflex however is unable to be determined as to what the allergy is therefore we'll continue with Unasyn and monitor her reaction ?Urine culture was no growth ?Her brother is at baseline and is able to fill in some of the gaps, he states that this is a significant alteration in her general mental status. She only knows where she is, and what is going on. She does have a cognitive disability since and she had been living with her mother until about 2015 ?Her hemoglobin is elevated and with a negative occult stool she may be on iron which is giving the stool a darker appearance. At this time I do not think that she has a GI bleed ?She does have a blood culture with gram-positive cocci however is only in 1 out of 4 tubes PCR is for Enterococcus, will repeat blood cultures today and consult infectious disease for an opinion 2. HTN/HLD ?Blood pressures are stable ?Continue with her home blood pressure medication ?Continue with pravastatin 3. Movement disorder/anxiety/depression ?Stable ?She is on Depakote which we will continue, her level was low ?Continue with Effexor and Lexapro 4. Iron deficiency anemia ?Hemoglobin is 16 on admission, likely representing dehydration we will continue to monitor ?Continue with iron replacement DVT: SCDs Charges/Coding Visit Charges Inpatient E&M: 61717 Subs Hosp L2
[2021-06-12 14:47] VITALS: RESP 18; O2SAT 99
[2021-06-12 17:00] VITALS: BP 112/66; PULSE 78; RESP 18; TEMP 36.8; O2SAT 97
[2021-06-12 20:43] VITALS: BP 112/94; PULSE 74; RESP 18; TEMP 37.1; O2SAT 94
[2021-06-12] MEDS: Pravastatin 40 MG Tablet PO (23:20)
[2021-06-12] MEDS: Venlafaxine XR 75 MG Capsule PO (23:21)
[2021-06-13 02:40] VITALS: BP 114/66; PULSE 66; RESP 18; TEMP 36.8; O2SAT 93
[2021-06-13] MEDS: Nystatin Powder 15gm Bottle 1 APPLIC TOPICAL ×3 (05:27→20:28)
[2021-06-13] MEDS: Menthol/Lanolin/Calamine/Znox 113 GM Tube 1 APPLIC TOPICAL ×3 (05:28→20:29)
[2021-06-13 07:50] LABS: Absolute Lymphocyte Count 0.66 X10^3/uL (0.83-4.51); Absolute Neutrophil Count 3.5 X10^3/uL (2.0-7.7); Basophil# 0.06 X10^3/uL; Basophil% 1.2 % (0-1); Hematocrit 38.6 % (37-47); Hemoglobin 12.7 g/dL (12.0-15.0); Lymphocyte # 0.66 X10^3/ul (0.83-4.51); Lymphocyte % 12.9 % (19-41); Mean Corp Hgb Conc 32.9 g/dL (32-36); Mean Corpuscular Hgb 32.5 pg (27.0-32.0); Mean Corpuscular Volume 98.7 fL (81-99); Mean Platelet Vol. 10.7 fl (6.2-12.0); Monocyte# 0.84 X10^3/uL; Monocyte% 16.4 % (0-10); NRBC Flagged by Analyzer 0 % (0-5); Neutrophil % 68.1 % (47-70); POSITIVE MORPHOLOGY YES; Platelet Count 117 K/mm3 (150-450); RBC Distribution Width CV 14.7 % (11.6-14.6); RBC Distribution Width SD 53.6 fl (35.1-43.9); Red Blood Count 3.91 M/mm3 (4.2-5.4); White Blood Count 5.1 K/mm3 (4.4-11.0)
[2021-06-13] MEDS: Divalproex Sodium 250 MG Tablet PO ×2 (08:15→20:29)
[2021-06-13] MEDS: amLODIPine 5 MG Tablet PO (08:15)
[2021-06-13] MEDS: Escitalopram Oxalate 20 MG Tablet PO (08:15)
[2021-06-13] MEDS: traMADol 50 MG Tablet PO (08:17)
[2021-06-13 08:18] LABS: Anion Gap 7 (5-15); BUN 22 mg/dL (7-18); BUN/Creat Ratio 20.2 RATIO (10-20); Calcium,Total 7.7 mg/dL (8.5-10.1); Chloride 109 mmol/L (98-107); Creatinine, Serum 1.09 mg/dL (0.55-1.02); EST Glomerular Filtration Rate 53 mL/min (>60); Est Glom Filt Rate - Afr Amer 65 mL/min (>60); Estimated Creatinine Clearance 45.68 ml/min; Glucose 99 mg/dL (74-106); Potassium 3.4 mmol/L (3.5-5.1); Sodium Level 140 mmol/L (136-145)
[2021-06-13 08:21] LABS: Differential Indicated SCAN CRITERIA MET
[2021-06-13 08:24] VITALS: BP 113/63; PULSE 73; RESP 16; TEMP 36.6; O2SAT 95
[2021-06-13] MEDS: Ondansetron 4 MG/2 ML Vial IV (08:30)
[2021-06-13] MEDS: 0.9% Normal Saline 1,000 ML 100 ML IV ×2 (10:49→20:28)
--- NOTE | 2021-06-13 11:03 | CASEMGMT ---
SW called pt's brother and guardian, Manny Hernandez, in regard to what he would like to do for pt's fci placement. Manny explains he is concerned about pt's care at [facility], but is not certain about changing facilities. Pt has been at [facility] for 5 years, and she likes it there. He states that he is concerned however that she is not being kept clean, that she is malnourished, and is not being encouraged to do things like brush her teeth. He states that she has been deemed incompetent, yet the staff says that she refuses to do things such as brush her teeth. He states that she just needs a little extra help and encouragement, and is not getting it. He is also concerned about staff giving her junk food. Pt's brother was aware also that when the squad came to get pt at [facility], there was no nurse to give report. Pt's brother, in talking further, is thinking he wants pt to return to [facility] but would like to address the issues. He states will call the accounts payable administrator, MIS called [facility] to confirm the accounts payable administrator's name(More Shepparddeniz). MIS explained will call Ruthie at [facility] as well, and can call the budsman. SW let pt's brother know that the [employer] had been called already based on no nurse being available to give report when the squad got to [facility], and they wanted the SW here to call the ombudsman as well. Pt's brother agreeable to have SW call the ombudsman. MIS also said can call Ruthie at [facility], and pt's brother in agreement with this as well. Pt's brother explained he does not want to complain, but has concerns. Pt's brother Jaci asked about getting medical records, SW gave him the number to medical records to call to request her record. He also wanted to make sure all the information from pt's stay here was given to [facility], MIS explained will send all of the reports from here. He is concerned about her malnourishment, and is wondering about a supplement. MIS explained we can speak w/physician about making sure this is on the discharge instructions. MIS explained to Manny will let him know when pt is ready to return to [facility]. SW also let him know that if pt comes in again and at that time he wants to make a change to another fci, we can reconsider it at that time. Manny states understanding. MIS called Ruthie, outlined Manny's concerns for pt in particular around eating and hygiene as explained above. MIS let Ruthie know SW will be calling the budsman as well. MIS faxed medical information to Ruthie. MIS called [facility] and spoke to Lynne in the ombudsman's office, outlined the concerns in regard to hygiene, nutrition, and no nurse available to give report when the squad got there. She took pt's brother's number to call as well. MIS will continue to follow. At this time, it is anticipated pt will return to [facility], SW will stay in touch w/pt's brother in regard to this. BRANDON Sanders
--- NOTE | 2021-06-13 13:02 | PCM.CONS.GEN ---
Assessment & Plan Assessment/Plan (1) Vomiting and diarrhea: (2) Metabolic encephalopathy: PLAN: Unclear cause. 1 of 4 bcx with enterococcus, likely contaminant. Agree with unasyn to cover aspiration and uti/enterococcus. With lymphopenia and hypoxia, will check covid. Will follow, thank you (3) Acute hypoxemic respiratory failure: (4) Acute cystitis: HPI Consult Data Date of Consult: 06/13/21 HPI Narrative HPI Narrative: YOLIS DHILLON, is a 65 F ON LICENSE OF [facility] resident with CKD, who presented 06/10 with altered mental status, reported n/v. Some hypoxia here. Pt unable to provide history. Denies abd pain, aches, fever. Admitted here on unasyn for possible uti and aspiration. Full ROS performed and neg except as noted above. [facility] Medical History Anemia Chronic kidney disease, stage 4 (severe) Depression Generalized anxiety disorder GERD (gastroesophageal reflux disease) Hypertension Intellectual disability TIERRA (obstructive sleep apnea) Home Medications Benadryl 25 mg PO/SL QHS 06/10/21 [History Last Taken Unknown] Mylanta 30 ml PO/SL Q6H PRN PRN 06/10/21 [History Last Taken Unknown] amlodipine 5 mg PO DAILY 06/10/21 [History Last Taken Unknown] divalproex 250 mg PO DAILY 06/10/21 [History Last Taken Unknown] divalproex 250 mg PO QHS 06/10/21 [History Last Taken Unknown] escitalopram oxalate 20 mg PO DAILY 06/10/21 [History Last Taken Unknown] ferrous sulfate 325 mg PO/SL DAILY 06/10/21 [History Last Taken Unknown] multivitamin 1 tablet PO/SL DAILY 06/10/21 [History Last Taken Unknown] oxybutynin chloride 5 mg PO QHS 06/10/21 [History Last Taken Unknown] pravastatin 40 mg PO QHS 06/10/21 [History Last Taken Unknown] tramadol 50 mg PO DAILY 06/10/21 [History Last Taken Unknown] tramadol 50 mg PO Q6H PRN PRN 06/10/21 [History Last Taken Unknown] venlafaxine 75 mg PO QHS 06/10/21 [History Last Taken Unknown] Allergy/AdvReac Type Severity Reaction Status Date / Time cephalexin Allergy PT UNABLE Verified 06/10/21 09:18 TO RESPOND-NEEDS F/U codeine Allergy PT UNABLE Verified 06/10/21 09:18 TO RESPOND-NEEDS F/U Family History (Updated 06/10/21 @ 14:[address] Mando Baires MD) Other Cancer Heart disease Surgical History (Updated 06/10/21 @ 14:[address] Mando Baires MD) Status post cataract extraction Social History (Updated 06/10/21 @ 09:[address] David Hui, DO) Smoking Status: Never smoker alcohol intake: never Physical Exam Const no apparent distress Exam Limitations: altered mental status and behavioral limitations HEENT normocephalic and head/scalp atraumatic Eyes PERRL and EOMs intact bilaterally Neck supple and No nodes Resp normal air movement and clear to auscultation bilaterally Cardio regular rate and regular rhythm GI normal to inspection, nondistended, normoactive bowel sounds Skin no rashes or lesions noted Neuro CN's II-XII intact bilaterally Lab / Micro Data Result Diagrams: 06/13/21 07:07 06/13/21 07:07 Labs: Laboratory Results - last 24 hr 06/13/21 07:07: WBC 5.1, RBC 3.91 L, Hgb 12.7, Hct 38.6, MCV 98.7, MCH 32.5 H, MCHC 32.9, RDW Std Deviation 53.6 H, RDW Coeff of Robin 14.7 H, Plt Count 117 L, MPV 10.7, Immature Gran % (Auto) 1.400 H, Neut % (Auto) 68.1, Lymph % (Auto) 12.9 L, [place] % (Auto) 16.4 H, Eos % (Auto) 0.0, Baso % (Auto) 1.2 H, Absolute Neuts (auto) 3.5, Absolute Lymphs (auto) 0.66 L, Nucleated RBC % 0 06/13/21 07:07: Sodium 140, Potassium 3.4 L, Chloride 109 H, Carbon Dioxide 24.0, Anion Gap 7, BUN 22 H, Creatinine 1.09 H, Estim Creat Clear Calc 45.68, Est GFR (MDRD) Af Amer 65, Est GFR (MDRD) Non-Af 53 L, BUN/Creatinine Ratio 20.2 H, Glucose 99, Calcium 7.7 L Micro: Microbiology 06/10/21 11:20 Blood Culture (Wb) - Femoral Artery Bacteria Detection (PCR) - Final Enterococcus faecalis 06/10/21 11:20 Blood Culture (Wb) - Femoral Artery Blood Culture - Preliminary Streptococcus group G GPC Poss Enterococcus sp 06/10/21 08:45 Blood Culture (Wb) - Left Hand Blood Culture - Preliminary No growth in 48 hours. 06/10/21 14:39 Urine, Clean Catch Urine Culture - Final Culture exhibits no growth.
[2021-06-13 13:05] VITALS: BP 93/57; PULSE 91; RESP 16; TEMP 36.9; O2SAT 95
[2021-06-13 15:08] VITALS: BP 99/58; PULSE 66; RESP 16; TEMP 37.3; O2SAT 92
[2021-06-13 15:26] LABS: Pathologist Review Reviewed
--- NOTE | 2021-06-13 20:12 | PN.HOSP_ITS ---
Subjective Subjective Patient was seen and examined today, patient is nonverbal, I talked to her brother who was in the room at the time of my examination, patient has cognitive impairment and he is her guardian. He states that she [facility] not [facility]. I talked briefly with infectious diseases today a nd they felt that the patient could possibly be [facility]. Infectious diseases states that the cause of the patient's cystitis is unclear at this point, they have elected to keep the patient on Unasyn, one of the 4 blood cultures were positive with Enterococcus- ID states that this may be a contaminant.. Objective Data Objective Data Vital Signs: Vital Signs Temp Pulse Resp BP Pulse Ox 99.1 F 66 16 99/58 L 92 06/13/21 15:08 06/13/21 15:08 06/13/21 15:08 06/13/21 15:08 06/13/21 15:08 Oxygen Flow Rate (L/min) 1 Oxygen Delivery Method Room Air Weight: 68.237 kg Body Mass Index (BMI) 25.0 Intake & Output: Intake and Output for Last 24 Hours 06/11/21 06/12/21 06/13/21 23:59 23:59 23:59 Intake Total 2289.34 / 2289.34 3587.33 / 3687.33 3042.67 / 3042.67 Output Total 350 / 350 605 / 755 900 / 900 Balance 1939.34 / 1939.34 2982.33 / 2932.33 2142.67 / 2142.67 Lab / Micro Data Result Diagrams: 06/13/21 07:07 06/13/21 07:07 Labs: Laboratory Results - last 24 hr 06/12/21 06:05: Diff Path Review Reviewed 06/13/21 07:07: WBC 5.1, RBC 3.91 L, Hgb 12.7, Hct 38.6, MCV 98.7, MCH 32.5 H, MCHC 32.9, RDW Std Deviation 53.6 H, RDW Coeff of Robin 14.7 H, Plt Count 117 L, MPV 10.7, Immature Gran % (Auto) 1.400 H, Neut % (Auto) 68.1, Lymph % (Auto) 12.9 L, [place] % (Auto) 16.4 H, Eos % (Auto) 0.0, Baso % (Auto) 1.2 H, Absolute Neuts (auto) 3.5, Absolute Lymphs (auto) 0.66 L, Nucleated RBC % 0 06/13/21 07:07: Sodium 140, Potassium 3.4 L, Chloride 109 H, Carbon Dioxide 24.0, Anion Gap 7, BUN 22 H, Creatinine 1.09 H, Estim Creat Clear Calc 45.68, Est GFR (MDRD) Af Amer 65, Est GFR (MDRD) Non-Af 53 L, BUN/Creatinine Ratio 20.2 H, Glucose 99, Calcium 7.7 L 06/13/21 15:00: COVID-19 (NISHI) Not Detected Micro: Microbiology 06/10/21 11:20 Blood Culture (Wb) - Femoral Artery Bacteria Detection (PCR) - Final Enterococcus faecalis 06/10/21 11:20 Blood Culture (Wb) - Femoral Artery Blood Culture - Preliminary Streptococcus group G GPC Poss Enterococcus sp 06/10/21 08:45 Blood Culture (Wb) - Left Hand Blood Culture - Preliminary No growth in 48 hours. 06/10/21 14:39 Urine, Clean Catch Urine Culture - Final Culture exhibits no growth. 06/10/21 09:05 Stool Stool Occult Blood (RINA) - Final Physical Exam Const alert and no apparent distress Constitutional Narrative: Patient appears cognitively impaired General Appearance: cooperative, well kempt and well developed Orientation / Consciousness: awake, oriented to person, oriented to place and oriented to time HEENT normocephalic and moist oral mucous membranes Eyes PERRL and conjunctivae normal Neck nuchal rigidity, supple, no JVD and thyroid normal General: trachea midline Resp normal respiratory effort, no retractions, no use of accessory muscles and clear to auscultation bilaterally Auscultation: Negative for rales, rhonchi or wheezes Cardio regular rate, regular rhythm, S1 normal heart sound, S2 normal heart sound, no murmurs, no rub and no gallops GI normal to inspection, nondistended, normoactive bowel sounds, soft to palpation, non-tender and non-distended Extremity no clubbing, cyanosis or edema Skin no rashes or lesions noted General Skin Exam: no breakdown Neuro CN's II-XII intact bilaterally Sensorium / Orientation: awake and alert Psych thought process normal Psych Narrative: Patient has obvious cognitive impairment Assessment & Plan Assessment/Plan (1) Acute cystitis: PLAN: 1. Acute cystitis-etiology unclear, continue antibiotics per infectious diseases #2 bacteremia with Enterococcus faecalis-this could be a possible contaminant, continue present antibiotic coverage #3 chronic cognitive impairment from #4 Essential hypertension #5 movement disorder-patient's brother states that the patient has abnormal movements in her left arm, I did not notice these movements today during the time of my examination however. #6 hyperlipidemia #7 poor oral intake-etiology unclear at this point, I discussed the possibility of the patient needing a PEG tube in the future if her oral intake was poor, I asked the patient's brother to consider this, he has not thought about this, he states he will put some thought into it in case the time comes where she would need a PEG tube. I told him I might try to place her on Remeron at the [facility] to see if this stimulates her appetite. Charges/Coding Visit Charges Inpatient E&M: 50286 Subs Hosp L2
[2021-06-13 20:23] VITALS: BP 99/46; PULSE 73; RESP 18; TEMP 36.8; O2SAT 96
[2021-06-13] MEDS: 0.9% Saline Lock 10 ML Syringe IV (20:30)
[2021-06-13] MEDS: Venlafaxine XR 75 MG Capsule PO (20:30)
[2021-06-13] MEDS: Pravastatin 40 MG Tablet PO (20:30)
[2021-06-14 03:28] VITALS: BP 96/60; PULSE 69; RESP 18; TEMP 37.3; O2SAT 100
[2021-06-14] MEDS: Menthol/Lanolin/Calamine/Znox 113 GM Tube 1 APPLIC TOPICAL ×2 (05:37→14:05)
[2021-06-14] MEDS: 0.9% Normal Saline 1,000 ML 100 ML IV (05:38)
[2021-06-14] MEDS: Nystatin Powder 15gm Bottle 1 APPLIC TOPICAL ×2 (05:38→14:04)
[2021-06-14] MEDS: Ondansetron 4 MG/2 ML Vial IV (07:51)
[2021-06-14] MEDS: traMADol 50 MG Tablet PO (07:58)
[2021-06-14] MEDS: Escitalopram Oxalate 20 MG Tablet PO (07:58)
[2021-06-14] MEDS: Divalproex Sodium 250 MG Tablet PO (07:58)
[2021-06-14] MEDS: amLODIPine 5 MG Tablet PO (07:59)
[2021-06-14] MEDS: Ferrous Sulfate 325 MG Tablet PO (07:59)
[2021-06-14 09:53] VITALS: BP 113/66; PULSE 77; RESP 16; TEMP 36.2; O2SAT 97
--- NOTE | 2021-06-14 12:53 | PCM.TXEXTCAR ---
Diet 06/10/21 18:09 Diet: Regular - General Food consistency:: Regular Liquid Consistency:: Regular/Thin Type of Dietary Supplement:: Ensure Enlive Is pt able to select menu?: No Diet Comments: 120 ml ensure enlive TID w/ meals; ensure pudding BID w/ lunch and dinner Wound(s) BILAT ABD FOLDS: Wound Type: OPEN AREA BILAT BUTTOCKS: Wound Type: Pressure Injury R thigh: Wound Type: blister Therapies Weight Bearing: Resume previous activity Problem/Diagnosis (1) Acute cystitis: Status: Ruled-out (2) Bacteremia: Status: Acute Comment: Enterococcus (3) Hypertension: Status: Chronic (4) Depression: Status: Chronic (5) Intellectual disability: Status: Chronic Allergies/Procedures Done in Hospital Allergies cephalexin Allergy (Verified 06/10/21 09:18) PT UNABLE TO RESPOND-NEEDS F/U codeine Allergy (Verified 06/10/21 09:18) PT UNABLE TO RESPOND-NEEDS F/U Type of Care/Length of Stay Estimated LOS: More Than 30 Days Type of Care Needed: Intermediate Rehab Potential: Fair Prognosis: Fair Additional Orders/Day of Discharge Additional Orders: Please assist pt as needed to prep food for eating, such as taking lids off, cutting up food, opening packets Day of Discharge: 06/14/21 Dietary and Speech Recommendations Dietitian Recommendations/Changes: Liberalized regular diet. Will adjust ONS to 120ml ensure enlive TID w/ meals. Will add ensure pudding BID w/ lunch and dinner. Recommend TF support if PO remains poor and inadequate at meals. Discharge Plan Admission Admit Date/Time: 06/10/21 14:06 Primary Reason for Your Visit: bacteremia Attending Provider: Juan Carlos Menard Primary Care Provider: Alexander Hernandez Consulting Providers: Saad Powers Discharge Orders/Prescriptions Prescriptions: New amoxicillin-pot clavulanate [Augmentin] 875-125 mg tablet 1 tab PO BID Qty: 1 RF: 0 mirtazapine [Remeron] 15 mg tablet 15 mg PO QHS Qty: 1 RF: 0 pantoprazole [Protonix] 20 mg tablet,delayed release (DR/EC) 20 mg PO DAILY Qty: 1 RF: 0 Continued venlafaxine 75 mg capsule,extended release 24hr 75 mg PO QHS RF: 0 divalproex 250 mg tablet,delayed release (DR/EC) 250 mg PO QHS RF: 0 divalproex 250 mg tablet,delayed release (DR/EC) 250 mg PO DAILY RF: 0 pravastatin 40 mg tablet 40 mg PO QHS RF: 0 amlodipine 5 mg tablet 5 mg PO DAILY RF: 0 tramadol 50 mg tablet 50 mg PO Q6H PRN PRN (Reason: pain) RF: 0 tramadol 50 mg tablet 50 mg PO DAILY RF: 0 oxybutynin chloride 5 mg tablet extended release 24hr 5 mg PO QHS RF: 0 escitalopram oxalate 20 mg tablet 20 mg PO DAILY RF: 0 Benadryl 25 mg PO/SL QHS RF: 0 Mylanta 30 ml PO/SL Q6H PRN PRN (Reason: indigestion ) RF: 0 ferrous sulfate 325 mg PO/SL DAILY RF: 0 multivitamin 1 tablet PO/SL DAILY RF: 0 Referrals / Follow Up: Alexander Hernandez MD [Primary Care Provider] - Disposition Disposition (needs filled in before D/C Order can be placed): [facility]
[2021-06-14 12:54] VITALS: BP 110/63; PULSE 77; RESP 16; TEMP 36.4; O2SAT 99
--- NOTE | 2021-06-14 14:46 | CHAPLAIN ---
Type of Pastoral Visit _x__ Initial Visit ___ Follow-up Visit ___ On-call Visit ___ General Patient Visit ___ Spiritual Assessment ___ Family Conference ___ Bereavement ___ Rapid Response ___ Code Blue ___ Other (describe below) Pastoral Care Referral From ___ Patient ___ Family ___ Nurse ___ Physician ___ Estimating Manager ___ Security Support Analyst _x__ Other (describe below) Sacrament/Intervention ___ Active listening ___ Anointing ___ Judaism ___ Bereavement ___ Communion ___ Krista exploration ___ ___ Life review _x__ Prayer ___ Reconciliation ___ Sacrament of Sick _x__ Supportive presence ___ Wedding ___ Other (describe below) Pastoral Comments patient was awake with her meal tray in front of her; pt had carton of milk in her hand unopened; this direct customer service representative opened carton and asked if she wanted to drink; pt took carton in hand and drank the milk; asked pt questions to which pt gave one word answers or nodded her head; pt pleasant and agreeable to visit and prayer; at conclusion of visit asked unit charge nurse if pt could have help eating to which reply was that a WATCH PARTS INSPECTOR would be helping her to eat
--- NOTE | 2021-06-14 14:58 | CASEMGMT ---
Pt is ready for discharge back to [facility] today. MIS set up an ambulance w/Physicians for 4:30pm. MIS called Ruthie at [facility], let her know pt is set up to leave at 4:30pm today. MIS called pt's brother and guardian Manny, message left letting him know pt is set up to leave at 4:30pm. SW let pt know she is set up to leave at 4:30pm to go back to [facility], pt nodded and smiled. MIS let pt's bedside RN know also that pt is set up to go to [facility] at 4:30pm. BRANDON Sanders
[2021-06-14 15:17] VITALS: BP 118/61; PULSE 81; RESP 16; TEMP 36.5; O2SAT 98
--- NOTE | 2021-06-14 15:44 | CASEMGMT ---
Social Work Note Pt is going to be discharged to [facility] today. MIS placed a call to pt's guardian/brother Manny. Manny states he spoke with physician, aware pt is going to be discharged today. MIS informed Manny that physician did write special instructions that SNF will need assist pt with eating. Manny states understanding. Manny states that he would like a copy of pt's medical chart. MIS informed Manny that he will need to speak with Medical Records to obtain copy of pt's chart. MIS informed pt that this worker will arrange transportation and then update Manny on transportation time. MIS faxed completed discharge paperwork to [facility] including transfer to extended care document, signed medication list, any scripts, COVID test/tool. Original in SNF folder and copy on pt's chart. Pt to transport via cot. Plan: Return to [facility] under intermediate level of care today Ana Escoto EDUCATIONAL FUNDRAISING DIRECTOR, GAS FLOW REGULATOR
--- NOTE | 2021-06-14 16:50 | DS.PCM_ITS ---
Providers Date of Admission: 06/10/21 Date of Discharge: 06/14/21 Primary Care Physician: Dr. Alexander Hernandez MD Consultations 06/12/21 07:43 Consult: Infectious Disease Routine Consulting Provider: Saad Powers Reason for Consult: enterococcus in 1 of 4 blood cultures EMERGENT Consult: No MD Notified: Yes Date Notified: 06/12/21 Time Notified: 07:43 Method of Notification: Answering Service Reason For Visit: AMS WITH UTI Diagnosis Discharge Diagnosis (1) Acute cystitis: Status: Ruled-out Code(s): N30.00 - Acute cystitis without hematuria (2) Bacteremia: Status: Acute Code(s): R78.81 - Bacteremia (3) Hypertension: Status: Chronic Code(s): I10 - Essential (primary) hypertension (4) Depression: Status: Chronic Code(s): F32.A - Depression, unspecified (5) Intellectual disability: Status: Chronic Code(s): F79 - Unspecified intellectual disabilities Plan: 1. Acute cystitis-etiology unclear #2 bacteremia with Enterococcus faecalis #3 chronic cognitive impairment from #4 Essential hypertension #5 movement disorder #6 hyperlipidemia #7 chronic kidney disease stage IIIa-etiology unknown #8 metabolic encephalopathy from acute cystitis and bacteremia on a backdrop of chronic cognitive impairment from Acute kidney injury was ruled out Medications at Discharge Home Medications Benadryl 25 mg PO/SL QHS 06/10/21 Mylanta 30 ml PO/SL Q6H PRN PRN 06/10/21 amlodipine 5 mg PO DAILY 06/10/21 divalproex 250 mg PO DAILY 06/10/21 divalproex 250 mg PO QHS 06/10/21 escitalopram oxalate 20 mg PO DAILY 06/10/21 ferrous sulfate 325 mg PO/SL DAILY 06/10/21 multivitamin 1 tablet PO/SL DAILY 06/10/21 oxybutynin chloride 5 mg PO QHS 06/10/21 pravastatin 40 mg PO QHS 06/10/21 tramadol 50 mg PO DAILY 06/10/21 tramadol 50 mg PO Q6H PRN PRN 06/10/21 venlafaxine 75 mg PO QHS 06/10/21 amoxicillin-pot clavulanate [Augmentin] 1 tab PO BID #1 tab 06/14/21 mirtazapine [Remeron] 15 mg PO QHS #1 tab 06/14/21 pantoprazole [Protonix] 20 mg PO DAILY #1 tab 06/14/21 Hospital Course Operations None Procedures None Summary of Care Provided Minutes Spent on Discharge: 32 Hospital Course: This 65-year-old white female was [place] in [place] a local [facility] to the emergency room at [facility] with altered mental status. Patient has cognitive impairment and a complete review of systems was unobtainable. Patient was found to require nasal cannula O2 but was not in any respiratory distress, she had altered mental status, chest x-ray was obtained which showed no acute process, white blood cell count was 7.5, hemoglobin was 16.2. CT of the abdomen did not show any acute process, CT of the brain showed nothing acute. Patient's urinalysis was indicative of a urinary tract infection with 25-50 WBCs and +1 bacteria. Patient was given IV fluids in the emergency room with some elevation of her blood pressure. Patient was admitted with metabolic encephalopathy felt to be secondary to a urinary tract infection, she was started on IV antibiotics, labs were monitored. Patient was taken off supplemental oxygen, she was seen in consultation by infectious diseases, patient's blood culture was positive for Enterococcus, the etiology of the Enterococcus was not known. Urine culture exhibited no growth. On 06/14/2021, patient was seen and examined: On examination she exhibited moderate to severe cognitive impairment, she does not appear to be in any distress. Vital signs as documented. Skin warm and dry and without overt rashes. Neck without JVD, thyroid appears normal, trachea is midline, neck is supple. Lungs clear, normal air movement was noted. Heart exam notable for regular rhythm, normal sounds and absence of murmurs, rubs or gallops. Abdomen unremarkable and without evidence of organomegaly, masses, or abdominal aortic enlargement, bowel sounds are present in all 4 quadrants, no abdominal tenderness was noted. Extremities nonedematous, no cyanosis was noted, no clubbing was noted. Neuro: Cranial nerves II through XII are grossly intact, no focal motor deficits were noted, sensation to light touch and pinprick is intact, motor exam 5/5 throughout. Psych: Patient is alert, she does not appear to be anxious or depressed On 06/14/2021, patient was transferred back to her residential facility in stable condition. Weight / BMI Weight Weight: 68.237 kg Body Mass Index (BMI) 25.0 ABG / Lab / Microbiology Data Result Diagrams: 06/13/21 07:07 06/13/21 07:07 Laboratory: Laboratory Results - last 24 hr 06/13/21 15:00: COVID-19 (NISHI) Not Detected Microbiology: Microbiology 06/10/21 11:20 Blood Culture (Wb) - Femoral Artery Bacteria Detection (PCR) - Final Enterococcus faecalis 06/10/21 11:20 Blood Culture (Wb) - Femoral Artery Blood Culture - Preliminary Streptococcus group G Enterococcus faecalis 06/12/21 14:40 Blood Culture (Wb) - Anticubital Right Blood Culture - Preliminary No growth in 48 hours. 06/10/21 08:45 Blood Culture (Wb) - Left Hand Blood Culture - Preliminary No growth in 48 hours. 06/10/21 14:39 Urine, Clean Catch Urine Culture - Final Culture exhibits no growth. 06/10/21 09:05 Stool Stool Occult Blood (RINA) - Final Meaningful Use Info Meaningful Use Diagnoses (Choose all that apply): None applicable Discharge Plan Admission Admit Date/Time: 06/10/21 14:06 Primary Reason for Your Visit: bacteremia Attending Provider: Juan Carlos Menard Primary Care Provider: Alexander Hernandez Consulting Providers: Saad Powers Discharge Orders/Prescriptions Prescriptions: New amoxicillin-pot clavulanate [Augmentin] 875-125 mg tablet 1 tab PO BID Qty: 1 RF: 0 mirtazapine [Remeron] 15 mg tablet 15 mg PO QHS Qty: 1 RF: 0 pantoprazole [Protonix] 20 mg tablet,delayed release (DR/EC) 20 mg PO DAILY Qty: 1 RF: 0 Continued venlafaxine 75 mg capsule,extended release 24hr 75 mg PO QHS RF: 0 divalproex 250 mg tablet,delayed release (DR/EC) 250 mg PO QHS RF: 0 divalproex 250 mg tablet,delayed release (DR/EC) 250 mg PO DAILY RF: 0 pravastatin 40 mg tablet 40 mg PO QHS RF: 0 amlodipine 5 mg tablet 5 mg PO DAILY RF: 0 tramadol 50 mg tablet 50 mg PO Q6H PRN PRN (Reason: pain) RF: 0 tramadol 50 mg tablet 50 mg PO DAILY RF: 0 oxybutynin chloride 5 mg tablet extended release 24hr 5 mg PO QHS RF: 0 escitalopram oxalate 20 mg tablet 20 mg PO DAILY RF: 0 Benadryl 25 mg PO/SL QHS RF: 0 Mylanta 30 ml PO/SL Q6H PRN PRN (Reason: indigestion ) RF: 0 ferrous sulfate 325 mg PO/SL DAILY RF: 0 multivitamin 1 tablet PO/SL DAILY RF: 0 Referrals / Follow Up: Alexander Hernandez MD [Primary Care Provider] - Disposition Disposition (needs filled in before D/C Order can be placed): [facility] Facility Charges/Coding Visit Charges Inpatient E&M: 09845 Disch Hosp
== END 2021-06-14 16:58 | disposition skilled nursing facility (03) | DRG 689 ==
LOC: ED 14:23 → MS3 15:37
PROVIDERS: Internal Medicine Infectious Disease; Admitting Provider Family Medicine; Emergency Provider Emergency Medicine; PCP Family Medicine; Visit Provider Internal Medicine
DX: N30.00 Acute cystitis without hematuria (principal); G93.41 Metabolic encephalopathy; R78.81 Bacteremia; J98.11 Atelectasis; G25.9 Extrapyramidal and movement disorder, unspecified; B95.2 Enterococcus as the cause of diseases classified elsewhere; I95.9 Hypotension, unspecified; R09.02 Hypoxemia; M43.6 Torticollis; E86.0 Dehydration; D50.9 Iron deficiency anemia, unspecified; F32.A Depression, unspecified; F41.1 Generalized anxiety disorder; F79 Unspecified intellectual disabilities; I12.9 Hypertensive chronic kidney disease with stage 1 through stage 4 chronic kidney disease, or unspecified chronic kidney disease; K21.9 Gastro-esophageal reflux disease without esophagitis; N18.31 Chronic kidney disease, stage 3a; G47.33 Obstructive sleep apnea (adult) (pediatric); G31.84 Mild cognitive impairment of uncertain or unknown etiology; E78.5 Hyperlipidemia, unspecified; Z79.899 Other long term (current) drug therapy
CPT/HCPCS: 36415; 51702; 70450; 71045; 74177; 80048; 80076; 80164; 81001; 82274; 83605; 83690; 84484; 85025; 85610; 85730; 87040; 87077; 87086; 87149; 87186; 87635; 93005; 97802; 97803; 99285; J7030; J7050; Q9967; U0005; A4216; J0295; J0744; J2405; U0003